=== PATIENT | female | born 1990 | race African-American/Black ===

== ENCOUNTER 2021-08-06 09:16 | Inpatient (IN) | payer MEDICAID ==
[~2021-08-06] VITALS: Ht 160 cm; Wt 72.6 kg
[2021-08-06] MEDS: LACTATED RINGERS 1,000 ML IV SCH ×2 (05:00→11:24)
[2021-08-06] MEDS ORDERED: NALOXONE HCL 0.4 MG/ML 1ML VIAL IM PRN (10:30)
[2021-08-06] MEDS ORDERED: METHYLERGONOVINE MALEATE 0.2 MG/ML IM PRN (10:30)
[2021-08-06 10:59] LABS: CLARITY URINE CLEAR (CLEAR); COLOR URINE YELLOW (YELLOW); KETONES URINE NEGATIVE (NEGATIVE); LEUKOCYTE ESTERASE URINE TRACE (NEGATIVE); NITRITE URINE NEGATIVE (NEGATIVE); OCCULT BLOOD URINE NEGATIVE (NEGATIVE); PROTEIN URINE TRACE (NEGATIVE); SPECIFIC GRAVITY URINE 1.022 (1.005-1.030)
[2021-08-06 11:02] LABS: BASOPHILS % 0.3 % (0.0-2.0); EOSINOPHILS % 1.9 % (0.0-5.0); HEMOGLOBIN. 11.9 g/dL (12.0-16.0); LYMPHOCYTES % 37.9 % (20.0-50.0); MEAN CORPUSCULAR VOLUME 87.7 fL (81.0-99.0); MEAN PLATELET VOLUME 11.1 fl (7.4-10.4); MONOCYTES % 7.9 % (2.0-8.0); PLATELET 195 x1000/uL (130-400); RED CELL DISTRIBUTION WIDTH 14.5 % (11.6-14.6)
[2021-08-06 11:27] LABS: INR 0.9; PARTIAL THROMBOPLASTIN TIME 28.8 sec (23.4-31.0); PROTHROMBIN TIME 10.1 sec (9.6-11.0)
[2021-08-06] MEDS ORDERED: CITRIC ACID/SODIUM CITRATE SOLN 30ML UDC PO NR (11:30)
[2021-08-06] MEDS ORDERED: CITRIC ACID/SODIUM CITRATE SOLN 30ML UDC PO ONE (11:30)
[2021-08-06 11:50] LABS: *AMPHETAMINES SCREEN URINE NEGATIVE (NEGATIVE)
[2021-08-06 11:55] LABS: *BARBITURATES SCREEN URINE NEGATIVE (NEGATIVE); *BENZODIAZEPINES SCREEN URINE NEGATIVE (NEGATIVE)
[2021-08-06 11:57] LABS: CANNABINOID URINE SCREEN NEGATIVE (NEGATIVE); METHADONE URINE SCREEN NEGATIVE (NEGATIVE); OPIATES URINE SCREEN NEGATIVE (NEGATIVE); PHENCYCLIDINE URINE SCREEN NEGATIVE (NEGATIVE)
[2021-08-06 11:58] LABS: *COCAINE SCREEN URINE NEGATIVE (NEGATIVE)
[2021-08-06 12:05] LABS: HEPATITIS B SURFACE ANTIGEN NEGATIVE
[2021-08-06] MEDS ORDERED: OXYTOCIN 10 UNITS/ML 1ML ONE (13:44)
[2021-08-06] MEDS ORDERED: CEFAZOLIN SODIUM 1000MG/VIAL ONE (13:44)
[2021-08-06] MEDS ORDERED: ONDANSETRON HCL 4MG/2ML INJ ONE (13:44)
[2021-08-06] MEDS ORDERED: PHENYLEPHRINE HCL 10 MG/ML 1ML (IV VIAL) IV ONE (13:44)
[2021-08-06] MEDS ORDERED: MORPHINE SULFATE/PF 1MG/ML 10ML AMP ONE (13:44)
[2021-08-06] MEDS ORDERED: EPHEDRINE SULFATE 50MG/ML VIAL ONE (13:44)
[2021-08-06] MEDS ORDERED: FENTANYL CITRATE/PF 50MCG/ML 2ML VIAL ONE (13:44)
[2021-08-06] MEDS ORDERED: DIPHENHYDRAMINE 50MG/ML VIAL ONE (13:44)
[2021-08-06] MEDS ORDERED: KETOROLAC 60MG/2ML VIAL IM ONE (15:07)
[2021-08-06] MEDS ORDERED: GLYCOPYRROLATE 0.2 MG/ML 2ML VIAL ONE (15:17)
[2021-08-06] MEDS: DEXT 5%/LR + PITOCIN 20UNITS/L 1,000 ML IV SCH ×2 (16:57→21:13)
[2021-08-06] MEDS ORDERED: BUTORPHANOL TARTRATE 2 MG/ML VIAL IV PRN (17:00)
[2021-08-06] MEDS ORDERED: NALOXONE HCL 0.4 MG/ML 1ML VIAL IV PRN (17:00)
[2021-08-06] MEDS ORDERED: DIPHENHYDRAMINE 50MG/ML VIAL IV PRN (17:00)
[2021-08-06 18:45] VITALS: BP 116/69
[2021-08-06] MEDS ORDERED: RHO(D) IMMUNE GLOBULIN 300 MCG/SYR IM PRN (19:15)
[2021-08-06] MEDS ORDERED: ONDANSETRON HCL 4MG/2ML INJ IV PRN (19:15)
[2021-08-06] MEDS ORDERED: DEXT 5%/LR + PITOCIN 20UNITS/L 1,000 ML IV SCH (19:15)
[2021-08-06] MEDS ORDERED: HEMORRHOIDAL SUPP PR PRN (19:15)
[2021-08-06] MEDS ORDERED: DIPHENHYDRAMINE 25MG CAPSULE PO PRN (19:15)
[2021-08-06] MEDS ORDERED: LANOLIN OINT 7GM TUBE TOP PRN (19:15)
[2021-08-06] MEDS ORDERED: BISACODYL 10MG SUPP PR PRN (19:15)
[2021-08-06] MEDS ORDERED: IBUPROFEN 400MG TABLET PO PRN (19:15)
[2021-08-06 19:30] VITALS: BP 117/72
[2021-08-06] MEDS ORDERED: DOCUSATE SODIUM 100MG CAPSULE PO SCH (21:00)
[2021-08-06] MEDS: KETOROLAC 30MG/ML VIAL IV SCH (21:08)
[2021-08-07] VITALS: BP 118/70
[2021-08-07 04:00] VITALS: BP 108/73
[2021-08-07] MEDS: KETOROLAC 30MG/ML VIAL IV SCH ×2 (04:32→11:03)
[2021-08-07 07:43] LABS: BASOPHILS % 0.5 % (0.0-2.0); EOSINOPHILS % 2.1 % (0.0-5.0); HEMATOCRIT. 32.3 % (36.0-48.0); HEMOGLOBIN. 10.8 g/dL (12.0-16.0); LYMPHOCYTES % 27.1 % (20.0-50.0); MEAN CORPUSCULAR HEMOGLOBIN 29.1 pg (28.0-32.0); MEAN CORPUSCULAR VOLUME 87.4 fL (81.0-99.0); MEAN PLATELET VOLUME 10.8 fl (7.4-10.4); NEUTROPHILS % 60.3 % (40.0-76.0); PLATELET 159 x1000/uL (130-400); RED BLOOD CELL COUNT 3.69 mill/uL (4.2-5.4); RED CELL DISTRIBUTION WIDTH 14.2 % (11.6-14.6)
[2021-08-07 08:05] VITALS: BP 108/66
[2021-08-07] MEDS: MAGNESIUM/ALUMINUM HYDROXIDE/SIMETHICONE 30ML UDC PO SCH ×3 (08:51→21:43)
[2021-08-07] MEDS: FERROUS SULFATE 325MG TABLET PO SCH ×2 (08:51→13:02)
[2021-08-07] MEDS: PRENATAL VIT/FE FUMARATE/FA TABLET PO SCH (08:51)
[2021-08-07] MEDS: SIMETHICONE 80MG TABLET CHEW PO SCH ×3 (08:51→21:44)
[2021-08-07] MEDS: IBUPROFEN 800MG TABLET PO PRN (16:50)
[2021-08-07 17:00] VITALS: BP 114/74
[2021-08-07 20:00] VITALS: BP 100/60
[2021-08-07] MEDS: ACETAMINOPHEN WITH CODEINE 300/30MG TABLET PO PRN (21:48)
[2021-08-08] MEDS: IBUPROFEN 800MG TABLET PO PRN ×2 (01:49→08:30)
[2021-08-08] MEDS: ACETAMINOPHEN WITH CODEINE 300/30MG TABLET PO PRN (03:41)
[2021-08-08 04:00] VITALS: BP 107/60
[2021-08-08 07:53] VITALS: BP 122/79
[2021-08-08] MEDS: MAGNESIUM/ALUMINUM HYDROXIDE/SIMETHICONE 30ML UDC PO SCH (08:30)
[2021-08-08] MEDS: SIMETHICONE 80MG TABLET CHEW PO SCH (08:30)
[2021-08-08] MEDS: FERROUS SULFATE 325MG TABLET PO SCH (08:30)
[2021-08-08] MEDS: PRENATAL VIT/FE FUMARATE/FA TABLET PO SCH (08:30)
== END 2021-08-08 11:00 | disposition home or self-care (01) | DRG 540 ==
LOC: OBSVTOIN 09:16 → 8 EST LDRP 09:16 → 8EST 18:30
PROVIDERS: ADMIT Obstetrics & Gynecology; ATTEND Obstetrics & Gynecology
PROC: 10D00Z1 Extraction of Products of Conception, Low, Open Approach (ICD-10-PCS; principal; 2021-08-06)
DX: O34.211 Maternal care for low transverse scar from previous cesarean delivery (principal); Z20.822 Contact with and (suspected) exposure to COVID-19; Z37.0 Single live birth; Z91.018 Allergy to other foods; Z3A.39 39 weeks gestation of pregnancy
CPT/HCPCS: 36415; 80305; 81003; 85025; 86592; 86703; 86762; 86850; 86900; 87340; 87426; 88307; 99281; G0378; J0690; J1200; J1885; J2274; J2370; J2405; J2590; J3010; J3490; J7120